=== PATIENT | female | born 1980 | race Caucasian/White ===

== ENCOUNTER 2020-02-28 18:09 | Emergency (ER) | payer MEDICARE, OTHER ==
[~2020-02-28] VITALS: Ht 162.6 cm; Wt 111.4 kg
[2020-02-28] MEDS ORDERED: ATIV1TAB10 PO (18:26)
[2020-02-28] MEDS ORDERED: KEPP1TAB2 PO (18:26)
[2020-02-28] MEDS ORDERED: NAPR220C14 PO (18:26)
[2020-02-28] MEDS ORDERED: PREG150C (18:26)
[2020-02-28] MEDS ORDERED: MORP15TA2 (18:26)
[2020-02-28] MEDS ORDERED: PROT1TAB2 PO (18:26)
--- NOTE | 2020-02-28 19:56 | REPVR ---
PROCEDURE INFORMATION: Exam: XR Right Foot Complete Exam date and time: 02/28/2020 7:06 PM Age: 39 years old Clinical indication: Fall TECHNIQUE: Imaging protocol: XR Right foot. Views: 3 or more views. COMPARISON: No relevant prior studies available. FINDINGS: Bones/joints: There is an acute nondisplaced transverse fracture involving the base of the right 1st metatarsal. No other fractures are seen in the right foot. The Lisfranc alignment is within normal limits. The there is mild osteoarthritis involving the right 1st metatarsophalangeal joint. There is a plantar calcaneal spur at the origin of the plantar fascia. Soft tissues: There is soft tissue swelling along the medial aspect of the right midfoot. IMPRESSION: Acute nondisplaced transverse fracture involving the base of the right 1st metatarsal. Electronically signed by: Merlin Chang On 02/28/2020 19:56:21 PM
[2020-02-28] MEDS ORDERED: NORCO 5/325MG TABLET (BULK FOR ED) PO ONE (20:15)
[2020-02-28] MEDS ORDERED: HYDR-3713 PO (20:18)
[2020-02-28 21:10] VITALS: BP 140/86
== END 2020-02-28 21:25 | disposition home or self-care (01) ==
LOC: M ED 18:09
DX: S92.314A Nondisplaced fracture of first metatarsal bone, right foot, initial encounter for closed fracture (principal); W01.0XXA Fall on same level from slipping, tripping and stumbling without subsequent striking against object, initial encounter; Y92.098 Other place in other non-institutional residence as the place of occurrence of the external cause; G62.9 Polyneuropathy, unspecified; Z87.820 Personal history of traumatic brain injury; R56.9 Unspecified convulsions; F41.9 Anxiety disorder, unspecified; Z87.798 Personal history of other (corrected) congenital malformations; Z88.6 Allergy status to analgesic agent; Z88.8 Allergy status to other drugs, medicaments and biological substances; Z88.2 Allergy status to sulfonamides; Z79.899 Other long term (current) drug therapy; Z79.1 Long term (current) use of non-steroidal anti-inflammatories (NSAID); Z79.891 Long term (current) use of opiate analgesic

== ENCOUNTER → 2020-03-08 | Outpatient (REF) | payer MEDICARE, OTHER ==
[~2020-03-08] MED LIST: ATIV1TAB10 PO; HYDR-3713 PO; KEPP1TAB2 PO; MORP15TA2; NAPR220C14 PO; PREG150C; PROT1TAB2 PO
[2020-03-08 17:05] LABS: ALT/SGPT 198 U/L (12-78); BILIRUBIN,TOTAL 0.7 MG/DL (0.2-1.0); BLOOD UREA NITROGEN 9 MG/DL (7-18); CALCIUM LEVEL 10.1 MG/DL (8.5-10.1); CARBON DIOXIDE LEVEL 28 MEQ/L (21-32); CHLORIDE LEVEL 104 MEQ/L (98-107); CREATININE FOR GFR 0.75 MG/DL (0.55-1.30); GLOMERULAR FILTRATION RATE > 60.0 (>60); GLUCOSE, FASTING 71 MG/DL (70-100); POTASSIUM SERUM 4.6 MEQ/L (3.5-5.1); SODIUM LEVEL 140 MEQ/L (136-145); TOTAL PROTEIN 8.4 GM/DL (6.4-8.2)
[2020-03-08 17:15] LABS: HEMOGLOBIN A1c 5.4 %
[2020-03-12 17:07] LABS: ANA (HEP2) Negative (.); ANTI-MITOCHONDRIAL ANTIBODY <20.0 Units (0.0-20.0)
== END ==
LOC: M SFHCADAM 14:31
PROVIDERS: ATTEND Physician Assistant
DX: R74.8 Abnormal levels of other serum enzymes (principal); R76.8 Other specified abnormal immunological findings in serum; R73.03 Prediabetes
CPT/HCPCS: 80053; 82397; 83036; 83520; 83883; 86038; 86255; G0463

== ENCOUNTER → 2020-05-29 | Outpatient (CLI) | payer MEDICARE, OTHER ==
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
== END ==
LOC: M PAIN 13:00
PROVIDERS: ATTEND Nurse Practitioner Family
DX: G62.9 Polyneuropathy, unspecified (principal); M46.1 Sacroiliitis, not elsewhere classified; G40.909 Epilepsy, unspecified, not intractable, without status epilepticus; K21.9 Gastro-esophageal reflux disease without esophagitis; F17.210 Nicotine dependence, cigarettes, uncomplicated; Z86.59 Personal history of other mental and behavioral disorders; Z88.1 Allergy status to other antibiotic agents; Z88.6 Allergy status to analgesic agent; Z88.8 Allergy status to other drugs, medicaments and biological substances; E66.01 Morbid (severe) obesity due to excess calories; Z68.41 Body mass index [BMI] 40.0-44.9, adult; Z79.899 Other long term (current) drug therapy

== ENCOUNTER → 2020-06-15 | Outpatient (CLI) | payer MEDICAID, MEDICARE ==
--- NOTE | 2020-06-15 12:01 | REP ---
INDICATION: FIBROSIS OF LIVER US 1ST LABS 2ND. COMPARISON: None. TECHNIQUE: Right upper quadrant sonography. FINDINGS: Scanning through the right upper quadrant of the abdomen demonstrates a somewhat coarse echodense liver parenchyma without focal liver lesion. The liver does not appear to be enlarged. Common bile duct is at the upper range of normal measuring 0.7 cm in greatest diameter. There are mobile shadowing echogenic structures in the gallbladder consistent with cholelithiasis. No pericholecystic fluid or tenderness to scanning is seen. Limited views of the pancreas show no abnormality. There is no evidence of ascites. Patient is status post partial nephrectomy. The right kidney measures 9.8 x 4.9 x 5.3 cm.. IMPRESSION: Somewhat coarse liver texture. No focal liver lesion. Cholelithiasis.. <Electronically signed by Cristino Allison > 06/15/20 [id number]
== END ==
LOC: M LAB 09:23
PROVIDERS: ATTEND Physician Assistant
DX: M19.90 Unspecified osteoarthritis, unspecified site (principal); K74.00 Hepatic fibrosis, unspecified; K80.20 Calculus of gallbladder without cholecystitis without obstruction

== ENCOUNTER → 2020-07-10 | Outpatient (CLI) | payer MEDICARE, MEDICAID ==
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
== END ==
LOC: M PAIN 13:45
PROVIDERS: ATTEND Nurse Practitioner Family
DX: G62.9 Polyneuropathy, unspecified (principal); M46.1 Sacroiliitis, not elsewhere classified; G89.29 Other chronic pain; G40.909 Epilepsy, unspecified, not intractable, without status epilepticus; K21.9 Gastro-esophageal reflux disease without esophagitis; G47.33 Obstructive sleep apnea (adult) (pediatric); F17.210 Nicotine dependence, cigarettes, uncomplicated; Z98.84 Bariatric surgery status; Z86.59 Personal history of other mental and behavioral disorders; Z88.1 Allergy status to other antibiotic agents; Z88.6 Allergy status to analgesic agent; Z88.8 Allergy status to other drugs, medicaments and biological substances; E66.01 Morbid (severe) obesity due to excess calories; Z68.41 Body mass index [BMI] 40.0-44.9, adult; Z79.891 Long term (current) use of opiate analgesic; Z79.899 Other long term (current) drug therapy

== ENCOUNTER → 2020-08-21 | Outpatient (CLI) | payer MEDICARE, MEDICAID ==
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
== END ==
LOC: M PAIN 14:45
PROVIDERS: ATTEND Nurse Practitioner Family
DX: G62.9 Polyneuropathy, unspecified (principal); F17.210 Nicotine dependence, cigarettes, uncomplicated; K76.0 Fatty (change of) liver, not elsewhere classified; E78.5 Hyperlipidemia, unspecified; G40.909 Epilepsy, unspecified, not intractable, without status epilepticus; E66.01 Morbid (severe) obesity due to excess calories; F32.9 Major depressive disorder, single episode, unspecified; F41.9 Anxiety disorder, unspecified; F43.10 Post-traumatic stress disorder, unspecified; K21.9 Gastro-esophageal reflux disease without esophagitis; G47.33 Obstructive sleep apnea (adult) (pediatric); Z98.84 Bariatric surgery status; Z68.41 Body mass index [BMI] 40.0-44.9, adult; Z88.6 Allergy status to analgesic agent; Z88.8 Allergy status to other drugs, medicaments and biological substances; Z88.2 Allergy status to sulfonamides; Z79.891 Long term (current) use of opiate analgesic; Z79.899 Other long term (current) drug therapy

== ENCOUNTER → 2020-10-16 | Outpatient (CLI) | payer MEDICARE ==
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
== END ==
LOC: M PAIN 14:30
PROVIDERS: ATTEND Nurse Practitioner Family
DX: G62.9 Polyneuropathy, unspecified (principal); F17.210 Nicotine dependence, cigarettes, uncomplicated; K76.0 Fatty (change of) liver, not elsewhere classified; E78.5 Hyperlipidemia, unspecified; G40.909 Epilepsy, unspecified, not intractable, without status epilepticus; E66.01 Morbid (severe) obesity due to excess calories; F32.9 Major depressive disorder, single episode, unspecified; K21.9 Gastro-esophageal reflux disease without esophagitis; G47.33 Obstructive sleep apnea (adult) (pediatric); Z79.891 Long term (current) use of opiate analgesic; Z79.899 Other long term (current) drug therapy; Z88.6 Allergy status to analgesic agent; Z88.8 Allergy status to other drugs, medicaments and biological substances; Z88.2 Allergy status to sulfonamides

== ENCOUNTER → 2021-03-21 | Outpatient (CLI) | payer MEDICARE | LOC: M PAIN 14:45 | PROVIDERS: ATTEND Anesthesiology | DX: G89.29 Other chronic pain (principal); M54.50 Low back pain, unspecified; F17.210 Nicotine dependence, cigarettes, uncomplicated; E78.5 Hyperlipidemia, unspecified; G40.909 Epilepsy, unspecified, not intractable, without status epilepticus; E66.01 Morbid (severe) obesity due to excess calories; F32.A Depression, unspecified; F41.9 Anxiety disorder, unspecified; F43.10 Post-traumatic stress disorder, unspecified; K21.9 Gastro-esophageal reflux disease without esophagitis; G47.33 Obstructive sleep apnea (adult) (pediatric); Z79.891 Long term (current) use of opiate analgesic; Z79.899 Other long term (current) drug therapy; Z88.2 Allergy status to sulfonamides; Z88.6 Allergy status to analgesic agent; Z88.8 Allergy status to other drugs, medicaments and biological substances; Z68.41 Body mass index [BMI] 40.0-44.9, adult ==

== ENCOUNTER → 2021-05-27 | Outpatient (CLI) | payer MEDICARE, MEDICAID ==
[~2021-05-27] MED LIST changes: +DOXE10CA PO; +OXYC-517 PO; -PREG150C; +PREG150C PO
== END ==
LOC: M LABSMTC 11:55
PROVIDERS: ATTEND Anesthesiology
DX: Z01.818 Encounter for other preprocedural examination (principal); Z11.52 Encounter for screening for COVID-19

== ENCOUNTER → 2021-05-28 | Outpatient (CLI) | payer MEDICARE, MEDICAID ==
[2021-05-28 12:54] LABS: BASO % 0.4 % (0.0-1.0); EOS # 0.1 10^3/uL (0.0-0.5); EOS % 1.2 % (0.0-3.0); HEMATOCRIT 41.1 % (36.0-47.0); HEMOGLOBIN 13.9 g/dl (12.0-15.5); LYMPH # 3.2 10^3/uL (1.5-5.0); MEAN CORPUSCULAR HEMOGLOBIN 37.8 pg (27.0-33.0); MEAN CORPUSCULAR HGB CONC 33.8 g/dl (32.0-36.5); MEAN CORPUSCULAR VOLUME 111.7 fl (80.0-96.0); MONO # 0.6 10^3/uL (0.0-0.8); MONO % 6.6 % (2.0-8.0); NEUTROPHILS # 5.4 10^3/uL (1.5-8.5); NEUTROPHILS % 57.5 % (36.0-66.0); PLATELET COUNT, AUTOMATED 220 10^3/uL (150-450); RED BLOOD COUNT 3.68 10^6/uL (4.00-5.40); WHITE BLOOD COUNT 9.4 10^3/uL (4.0-10.0)
[2021-05-28 13:25] LABS: BLOOD UREA NITROGEN 3 MG/DL (7-18); CALCIUM LEVEL 9.1 MG/DL (8.5-10.1); CARBON DIOXIDE LEVEL 25 MEQ/L (21-32); CHLORIDE LEVEL 103 MEQ/L (98-107); CREATININE FOR GFR 0.57 MG/DL (0.55-1.30); GLOMERULAR FILTRATION RATE > 60.0 (>58); GLUCOSE, FASTING 109 MG/DL (70-100); POTASSIUM SERUM 3.7 MEQ/L (3.5-5.1); SODIUM LEVEL 139 MEQ/L (136-145)
--- NOTE | 2021-05-28 21:06 | ECGEPIP ---
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 Possible Inferior infarct , age undetermined. No prior ECG available for comparison at the time of interpretation. Electronically Signed on 05-28-2021 21:05:55 EST by Guille Garcia
== END ==
LOC: M LAB 11:32
PROVIDERS: ATTEND Podiatrist
DX: Z01.818 Encounter for other preprocedural examination (principal); M79.672 Pain in left foot

== ENCOUNTER → 2021-06-05 | Outpatient (CLI) | payer MEDICARE ==
[~2021-06-05] MED LIST changes: +HYDR-3363 PO
== END ==
LOC: M PAIN 13:45
PROVIDERS: ATTEND Anesthesiology
DX: M79.606 Pain in leg, unspecified (principal); G62.9 Polyneuropathy, unspecified; M54.50 Low back pain, unspecified; M20.10 Hallux valgus (acquired), unspecified foot; F17.210 Nicotine dependence, cigarettes, uncomplicated; K76.0 Fatty (change of) liver, not elsewhere classified; E78.5 Hyperlipidemia, unspecified; G40.909 Epilepsy, unspecified, not intractable, without status epilepticus; E66.01 Morbid (severe) obesity due to excess calories; F32.A Depression, unspecified; F41.9 Anxiety disorder, unspecified; F43.10 Post-traumatic stress disorder, unspecified; K21.9 Gastro-esophageal reflux disease without esophagitis; G47.33 Obstructive sleep apnea (adult) (pediatric); Z79.891 Long term (current) use of opiate analgesic; Z79.899 Other long term (current) drug therapy; Z88.2 Allergy status to sulfonamides; Z88.6 Allergy status to analgesic agent; Z88.8 Allergy status to other drugs, medicaments and biological substances; Z68.41 Body mass index [BMI] 40.0-44.9, adult

== ENCOUNTER → 2021-06-05 | Outpatient (CLI) | payer MEDICARE, MEDICAID ==
[~2021-06-05] MED LIST changes: -HYDR-3363 PO
== END ==
LOC: M LABSMTC 10:19
PROVIDERS: ATTEND Anesthesiology
DX: Z01.812 Encounter for preprocedural laboratory examination (principal); Z20.822 Contact with and (suspected) exposure to COVID-19

== ENCOUNTER 2021-06-07 09:32 | Day surgery (SDC) | payer MEDICARE, MEDICAID ==
[~2021-06-07] VITALS: Ht 162.6 cm; Wt 96.2 kg
[~2021-06-07 09:32] MED LIST changes: +LR 1,000 ML IV ONE; +ceFAZolin SOD 2 GM in IV 1 EA IV ONE
[2021-06-07] MEDS ORDERED: LIDOCAINE 2% 100MG/5ML SDV (FOR ANES.) As Ordered ONE (09:35)
[2021-06-07] MEDS ORDERED: propofoL 200 MG/20 ML VIAL As Ordered ONE (09:35)
[2021-06-07] MEDS ORDERED: KETOROLAC 60MG 2ML VIAL As Ordered ONE (09:35)
[2021-06-07] MEDS ORDERED: ONDANSETRON 4MG/2ML VIAL As Ordered ONE ×2 (09:35→14:58)
[2021-06-07] MEDS ORDERED: MIDAZOLAM INJ 2MG/2ML VIAL (J2250 PER 1MG) As Ordered ONE (09:35)
[2021-06-07] MEDS ORDERED: dexameTHASONE 4 MG/ML 1ML VIAL (J1100 PER 1MG) As Ordered ONE ×2 (09:35→11:35)
[2021-06-07] MEDS ORDERED: fentaNYL 100 MCG/2 ML INJECTION (J3010) As Ordered ONE ×2 (09:35→13:35)
[2021-06-07] MEDS ORDERED: HYDR-3363 PO (09:45)
[2021-06-07] MEDS ORDERED: LIDOCAINE 2% MDV 20ML VIAL As Ordered ONE (11:35)
[2021-06-07] MEDS ORDERED: BUPIVACAINE HCL 0.5% 30 ML VIAL As Ordered ONE (11:35)
[2021-06-07] MEDS ORDERED: GENTAMICIN SULF 80MG/2ML VIAL As Ordered ONE (11:35)
[2021-06-07] MEDS ORDERED: ROPIvacaine 0.5% 30ML INJECTION (J2795 PER 1MG) As Ordered ONE (12:13)
[2021-06-07] MEDS ORDERED: LABETALOL 100MG/20ML VIAL As Ordered ONE (13:50)
[2021-06-07] MEDS ORDERED: ALBUTEROL 6.7GM INHALER **FOR ANES. CART/OMNICELL ONLY As Ordered ONE (14:19)
[2021-06-07] MEDS ORDERED: LR 1,000 ML IV SCH (15:00)
[2021-06-07] MEDS: ONDANSETRON 4MG/2ML VIAL IV PRN ×2 (15:00→15:20)
[2021-06-07] MEDS ORDERED: oxyCODONE 5MG TAB PO PRN (15:00)
[2021-06-07] MEDS ORDERED: METOCLOPRAMIDE INJ 10MG/2ML VIAL (J2765 PER 1) IV PRN (15:20)
[2021-06-07 16:25] VITALS: BP 144/82
== END 2021-06-07 16:52 | disposition home or self-care (01) ==
LOC: M SDC 09:32
PROVIDERS: ATTEND Podiatrist
DX: M20.12 Hallux valgus (acquired), left foot (principal); M20.5X2 Other deformities of toe(s) (acquired), left foot; M79.672 Pain in left foot; G40.909 Epilepsy, unspecified, not intractable, without status epilepticus; F32.9 Major depressive disorder, single episode, unspecified; F41.9 Anxiety disorder, unspecified; K21.9 Gastro-esophageal reflux disease without esophagitis; G57.90 Unspecified mononeuropathy of unspecified lower limb; E78.5 Hyperlipidemia, unspecified; K74.00 Hepatic fibrosis, unspecified; Z87.820 Personal history of traumatic brain injury; G47.30 Sleep apnea, unspecified; R06.83 Snoring; F43.10 Post-traumatic stress disorder, unspecified; Z79.899 Other long term (current) drug therapy; Z79.1 Long term (current) use of non-steroidal anti-inflammatories (NSAID); Z88.8 Allergy status to other drugs, medicaments and biological substances; Z88.6 Allergy status to analgesic agent; Z88.1 Allergy status to other antibiotic agents; Z88.2 Allergy status to sulfonamides; F17.210 Nicotine dependence, cigarettes, uncomplicated
CPT/HCPCS: 28297; 73630; 76000; 88300; C1713; J0690; J1100; J1580; J1885; J2250; J2405; J2765; J2795; J3010

== ENCOUNTER → 2021-07-25 | Outpatient (REF) | payer MEDICARE, MEDICAID ==
[~2021-07-25] MED LIST changes: +HYDR-3363 PO; -LR 1,000 ML IV ONE; -ceFAZolin SOD 2 GM in IV 1 EA IV ONE
== END ==
LOC: M LAB REF 15:50
PROVIDERS: ATTEND Podiatrist
DX: L03.126 Acute lymphangitis of left lower limb (principal); M79.672 Pain in left foot

== ENCOUNTER → 2021-08-02 | Outpatient (CLI) | payer MEDICARE | LOC: M PAIN 13:45 | PROVIDERS: ATTEND Nurse Practitioner Family | DX: M79.606 Pain in leg, unspecified (principal); G62.9 Polyneuropathy, unspecified; M54.50 Low back pain, unspecified; M20.10 Hallux valgus (acquired), unspecified foot; F17.210 Nicotine dependence, cigarettes, uncomplicated; K76.0 Fatty (change of) liver, not elsewhere classified; E78.5 Hyperlipidemia, unspecified; G40.909 Epilepsy, unspecified, not intractable, without status epilepticus; E66.01 Morbid (severe) obesity due to excess calories; F32.A Depression, unspecified; F41.9 Anxiety disorder, unspecified; F43.10 Post-traumatic stress disorder, unspecified; K21.9 Gastro-esophageal reflux disease without esophagitis; G47.33 Obstructive sleep apnea (adult) (pediatric); Z79.891 Long term (current) use of opiate analgesic; Z79.899 Other long term (current) drug therapy; Z88.2 Allergy status to sulfonamides; Z88.6 Allergy status to analgesic agent; Z88.8 Allergy status to other drugs, medicaments and biological substances; Z68.41 Body mass index [BMI] 40.0-44.9, adult; Z20.822 Contact with and (suspected) exposure to COVID-19 ==

== ENCOUNTER → 2022-02-26 | Outpatient (CLI) | payer MEDICARE | LOC: M PAIN 14:30 | PROVIDERS: ATTEND Nurse Practitioner Family | DX: G89.29 Other chronic pain (principal); M54.50 Low back pain, unspecified; F17.210 Nicotine dependence, cigarettes, uncomplicated; K76.0 Fatty (change of) liver, not elsewhere classified; E78.5 Hyperlipidemia, unspecified; G40.909 Epilepsy, unspecified, not intractable, without status epilepticus; E66.01 Morbid (severe) obesity due to excess calories; F32.A Depression, unspecified; F41.9 Anxiety disorder, unspecified; F43.10 Post-traumatic stress disorder, unspecified; G62.9 Polyneuropathy, unspecified; K21.9 Gastro-esophageal reflux disease without esophagitis; G47.33 Obstructive sleep apnea (adult) (pediatric); E53.8 Deficiency of other specified B group vitamins; Z68.37 Body mass index [BMI] 37.0-37.9, adult; Z79.891 Long term (current) use of opiate analgesic; Z87.820 Personal history of traumatic brain injury; Z79.899 Other long term (current) drug therapy; Z87.768 Personal history of other specified (corrected) congenital malformations of integument, limbs and musculoskeletal system; Z88.6 Allergy status to analgesic agent; Z88.2 Allergy status to sulfonamides; Z88.8 Allergy status to other drugs, medicaments and biological substances ==

== ENCOUNTER 2022-06-30 19:27 | Emergency (ER) | payer MEDICARE ==
[~2022-06-30] VITALS: Ht 162.6 cm; Wt 92.0 kg
[2022-06-30 19:51] LABS: VENOUS BASE EXCESS -13.8 (-2.0-2.0); VENOUS HCO3 11.8 MEQ/L (23.0-27.0); VENOUS O2 SATURATION 88.8 % (60.0-80.0); VENOUS PARTIAL PRESSURE CO2 26.6 mmHg (38.0-50.0); VENOUS PARTIAL PRESSURE O2 61.6 mmHg (30.0-50.0); VENOUS PH 7.266 UNITS (7.330-7.430); VENOUS STANDARD HCO3 13.4 MEQ/L; VENOUS TOTAL CO2 12.6 MEQ/L (24.0-28.0)
[2022-06-30 19:58] LABS: HEMATOCRIT 22.8 % (36.0-47.0); HEMOGLOBIN 7.1 g/dl (12.0-15.5); MEAN CORPUSCULAR HEMOGLOBIN 37.4 pg (27.0-33.0); MEAN CORPUSCULAR HGB CONC 31.1 g/dl (32.0-36.5); PLATELET COUNT, AUTOMATED 107 10^3/uL (150-450); WHITE BLOOD COUNT 1.8 10^3/uL (4.0-10.0)
[2022-06-30] MEDS ORDERED: MORPHINE 4 MG/ML 1ML VIAL IV ONE (20:05)
[2022-06-30] MEDS ORDERED: ONDANSETRON 4MG 2ML VIAL IV ONE (20:05)
[2022-06-30] MEDS ORDERED: ACETAMINOPHEN 1000MG 100ML IV BAG IV ONE (20:10)
[2022-06-30 20:12] LABS: INR 2.78; PARTIAL THROMBOPLASTIN TIME 46.4 SECONDS (24.8-34.2); PROTHROMBIN TIME 29.8 SECONDS (12.5-14.5)
[2022-06-30 20:25] LABS: AMYLASE 134 U/L (30-118)
[2022-06-30 20:27] LABS: HCG, SERUM QUALITATIVE NEGATIVE (NEGATIVE)
[2022-06-30 20:30] LABS: RSV AMPLIFICATION NEGATIVE (NEGATIVE)
[2022-06-30] MEDS ORDERED: PHYTONADIONE 5 MG TAB PO ONE (20:35)
[2022-06-30 20:36] LABS: ALKALINE PHOSPHATASE 39 U/L (46-116); ALT/SGPT 57 U/L (7.0-40); AST/SGOT 116 U/L (<34); BILIRUBIN,DIRECT 8.8 MG/DL (<0.4); BILIRUBIN,TOTAL 17.2 MG/DL (0.3-1.2); BLOOD UREA NITROGEN 39 MG/DL (9-23); CALCIUM LEVEL 8.9 MG/DL (8.5-10.1); CARBON DIOXIDE LEVEL 13 MMOL/L (20-31); CHLORIDE LEVEL 98 MMOL/L (98-107); CREATININE FOR GFR 2.29 MG/DL (0.55-1.30); GLUCOSE, FASTING 43 MG/DL (60-100); POTASSIUM SERUM 4.2 MMOL/L (3.5-5.1); SODIUM LEVEL 134 MMOL/L (136-145); TOTAL PROTEIN 6.2 G/DL (5.7-8.2)
[2022-06-30] MEDS: NOREPINEPHRINE 4MG IN D5 250ML 4 MG in IV 1 EA IV SCH ×4 (20:52→23:28)
[2022-06-30 21:00] LABS: ATYPICAL LYMPH 4 % (0-5); BLAST CELLS 2 % (0-0); EOSINOPHILS 3 % (0-3); LYMPHOCYTES 29 % (16-44); METAMYELOCYTES 11 % (0-0); MONOCYTES 2 % (0-5); MYELOCYTES 8 % (0-0); NEUTROPHILS 17 % (28-66); PLATELET ESTIMATE NORMAL (NORMAL); PROMYELOCYTES 2 % (0-0)
[2022-06-30 21:04] LABS: ANISOCYTOSIS 2+; POIKILOCYTOSIS 3+; POLYCHROMASIA 1+
[2022-06-30] MEDS ORDERED: DEXTROSE 50% 50ML SYRINGE IV STA ×2 (21:14→22:55)
[2022-06-30] MEDS ORDERED: DEXTROSE 50% 50ML SYRINGE As Ordered ONE (21:17)
[2022-06-30] MEDS ORDERED: CEFEPIME HCL 2 GM in D5W MINI-BAG PLUS 50 ML IV ONE (21:35)
[2022-06-30] MEDS ORDERED: VANCOMYCIN HCL 1,500 MG in IV FLUID PLACE HOLDER 1 EA IV ONE (21:35)
[2022-06-30] MEDS ORDERED: VANCOMYCIN HCL 750 MG, VIAL MATE ADAPTER 1 EACH in D5W 250 ML IV ONE ×6 (22:00)
[2022-06-30 22:41] LABS: APPEARANCE, URINE MANUAL TURBID (CLEAR)
[2022-06-30 22:42] LABS: COLOR, URINE MANUAL AMBER (YELLOW)
[2022-06-30 22:43] LABS: SPECIFIC GRAVITY,URINE MANUAL 1.018 (1.002-1.035)
[2022-06-30 22:44] LABS: BILIRUBIN, URINE MANUAL 2+ (NEGATIVE); BLOOD URINE MANUAL POSITIVE (NEGATIVE); GLUCOSE, URINE (UA) MANUAL NEGATIVE (NEGATIVE); KETONE, URINE MANUAL 1+ mg/dL (NEGATIVE); LEUKOCYTE ESTERASE, URINE MAN NEGATIVE (NEGATIVE); NITRITE, URINE MANUAL NEGATIVE (NEGATIVE); PROTEIN, URINE MANUAL 2+ mg/dL (NEGATIVE); UROBILINOGEN, URINE MANUAL 8 MG mg/dl (NORMAL)
[2022-06-30 22:57] LABS: SQUAMOUS EPITHELIAL CELL URINE MOD AMOUNT /hpf (SMALL AMT)
[2022-06-30 22:59] LABS: BACTERIA, URINE LARGE AMOUNT
[2022-06-30 23:01] LABS: AMORPHOUS SEDIMENT, URINE SMALL AMOUNT (NEGATIVE); HYALINE CAST, URINE NONE SEEN /lpf (0-1)
[2022-06-30 23:26] LABS: ABG BASE EXCESS -16.9 (-2.0-2.0); ABG HCO3 9.8 MEQ/L (22.0-26.0); ABG PARTIAL PRESSURE CO2 26.4 mmHg (35.0-45.0); ABG PARTIAL PRESSURE O2 80.1 mmHg (75.0-100.0); ABG STANDARD HCO3 11.2 MEQ/L (22.0-26.0); ABG TOTAL CO2 10.6 MEQ/L (22.0-29.0)
[2022-06-30 23:30] LABS: ABG pH (ARTERIAL) 7.189 UNITS (7.350-7.450)
[2022-06-30] MEDS ORDERED: SODIUM BICARBONATE 8.4% INJ 50ML SYRINGE IV STA (23:34)
[2022-06-30] MEDS ORDERED: SODIUM BICARBONATE 150 MEQ in D5W 1,000 ML IV SCH (23:35)
[2022-07-01] MEDS ORDERED: NOREPINEPHRINE BITARTRATE 16 MG in D5W 484 ML IV SCH (01:15)
[2022-07-01 01:36] VITALS: BP 97/47
== END 2022-07-01 01:53 | disposition short-term general hospital (02) ==
LOC: M ED 19:27
DX: L97.929 Non-pressure chronic ulcer of unspecified part of left lower leg with unspecified severity (principal); R65.21 Severe sepsis with septic shock; S92.245A Nondisplaced fracture of medial cuneiform of left foot, initial encounter for closed fracture; K72.90 Hepatic failure, unspecified without coma; L03.116 Cellulitis of left lower limb; E16.2 Hypoglycemia, unspecified; N17.9 Acute kidney failure, unspecified; K21.9 Gastro-esophageal reflux disease without esophagitis; R00.0 Tachycardia, unspecified; R56.9 Unspecified convulsions; F32.A Depression, unspecified; F41.9 Anxiety disorder, unspecified; Z88.2 Allergy status to sulfonamides; Z88.6 Allergy status to analgesic agent; Z88.8 Allergy status to other drugs, medicaments and biological substances; Z79.899 Other long term (current) drug therapy
CPT/HCPCS: 36600; 51701; 71045; 73700; 80048; 80076; 81000; 82150; 82803; 83605; 84703; 85025; 85610; 85730; 86140; 86850; 86870; 86900; 86901; 87040; 87077; 87088; 87186; 87631; 93005; 93041; 94760; 96365; 96366; 96368; 96375; 99285; J0692; J2270; J2405